=== PATIENT | female | born 1960 | race Caucasian/White ===

== ENCOUNTER 2018-08-12 03:53 | Observation (INO) | payer BC, OTHER ==
--- NOTE | 2018-08-12 03:58 | PDOC ---
History of Present Illness - History of Present Illness Initial Comments: 08/12/18 04:22 The patient is a 57 year old female, with no significant past medical history, who presents to the emergency department with, dizziness and nausea. As per patient, she woke up feeling significantly dizzy and nauseous. She reports on her way to the hospital she also began to experience mild chest tightness and faint. While in the ED, she reports experiencing an episode of right lower extremity tingling which has since resolved. While in the ED, she reports an episode of emesis, which she believes she feels better after. She denies any recent long distance travel. She denies any palpitations. She denies recent fevers, chills, headache or dizziness. She denies recent diarrhea or constipation. She denies recent dysuria, frequency, urgency or hematuria. Allergies: Pollen extracts. Past surgical history: None reported. Social history: Smoker ( pack a day). Denies EtOH use and recreational drug use. <Khalif Gordon - Last Filed: 08/12/18 06:53> <Renetta Rogers - Last Filed: 08/12/18 10:10> <Viral Maravilla - Last Filed: 08/12/18 10:47> - General History Source: Patient Exam Limitations: No Limitations <Hattie Bartholomew - Last Filed: 08/13/18 02:19> - General Stated Complaint: CHEST TIGHTNESS Time Seen by Provider: 08/12/18 03:57 Past History <Khalif Gordon - Last Filed: 08/12/18 06:53> <Renetta Rogers - Last Filed: 08/12/18 10:10> <Viral Maravilla - Last Filed: 08/12/18 10:47> - Suicide/Smoking/Psychosocial Hx Smoking History: Never smoked <Hattie Bartholomew - Last Filed: 08/13/18 02:19> - Past Medical History Allergies/Adverse Reactions: Allergies Allergy/AdvReac Type Severity Reaction Status Date / Time pollen extracts Allergy Verified 08/12/18 04:03 Home Medications: Ambulatory Orders Meclizine HCl [Antivert -] 12.5 mg PO Q6H PRN #10 tablet 08/12/18 Review of Systems - Review of Systems Able to Perform ROS?: Yes Comments:: 08/12/18 04:22 CONSTITUTIONAL: No fever, no chills, no fatigue EYES: No visual changes ENT: No ear pain, no sore throat +CARDIOVASCULAR: Chest tightness. No palpitations RESPIRATORY: No cough, no SOB +GI: Nausea. Vomiting. No abdominal pain, no constipation, no diarrhea GENITOURINARY: No dysuria, no frequency, no hematuria MUSCULOSKELETAL: No back pain, no joint pain, no myalgias SKIN: No rash +NEURO:Dizziness. No headache All Other Systems: Reviewed and Negative <Khalif Gordon - Last Filed: 08/12/18 06:53> *Physical Exam - Vital Signs Last Vital Signs Temp Pulse Resp BP Pulse Ox 97.6 F 79 24 139/69 100 08/12/18 04:03 08/12/18 04:03 08/12/18 04:03 08/12/18 04:03 08/12/18 04:03 - Physical Exam Comments: 08/12/18 04:23 +GENERAL: Anxious on exam. The patient is in no acute distress. HEAD: Normal with no signs of trauma. EYES: PERRLA, EOMI, sclera anicteric, conjunctiva clear. ENT: Ears normal, nares patent, oropharynx clear without exudates. Moist mucous membranes. NECK: Normal range of motion, supple without lymphadenopathy, JVD, or masses. LUNGS: Breath sounds equal, clear to auscultation bilaterally. No wheezes, and no crackles. HEART:Regular rate and rhythm, normal S1 and S2 without murmur, rub or gallop. ABDOMEN: Soft, nontender, normoactive bowel sounds. No guarding, no rebound. No masses palpable. EXTREMITIES: Normal range of motion, no edema. No clubbing or cyanosis. No erythema, or tenderness. NEUROLOGICAL:Alert, awake, appropriate. Cranial nerves 2-12 intact. No deficits to light touch and temperature in face, upper extremities and lower extremities. No motor deficits in the in face, upper extremities and lower extremities. No pronator drift. Normoreflexic in the upper and lower extremities. Normal speech. Toes are down-going bilaterally. MUSCULOSKELETAL: Back non-tender to palpation, no CVA tenderness SKIN: Warm, Dry, normal turgor, no rashes or lesions noted. <Khalif Gordon - Last Filed: 08/12/18 06:53> - Vital Signs Last Vital Signs Temp Pulse Resp BP Pulse Ox 97.6 F 79 24 139/69 100 08/12/18 04:03 08/12/18 04:03 08/12/18 04:03 08/12/18 04:03 08/12/18 04:03 <Renetta Rogers - Last Filed: 08/12/18 10:10> - Vital Signs Last Vital Signs Temp Pulse Resp BP Pulse Ox 97.6 F 79 24 139/69 100 08/12/18 04:03 08/12/18 04:03 08/12/18 04:03 08/12/18 04:03 08/12/18 04:03 <Viral Maravilla - Last Filed: 08/12/18 10:47> ED Treatment Course - LABORATORY CBC & Chemistry Diagram: 08/12/18 04:13 08/12/18 04:13 - RADIOLOGY Radiograph Interpretation: 08/12/18 06:53 EXAM: CT HEAD WITHOUT CONTRAST No acute brain parenchymal abnormality. No hemorrhage, mass or acute territorial infarct. Gas bubbles incidentally noted in bilateral cavnerous sinuses, probably secondary to recent IV injection. Mucoperiosteal thickening and surgical changes paranasal sinuses. Possible small fluid left sphenoid and left maxillary sinuses. Partial right mastoid effusion. Individualized dose optimization techniques were used for this CT Read by: Yoli Jenkins MD - Medications Given in the ED: ED Medications Discontinued Medications Generic Name Dose Route Start Last Admin Trade Name Freq PRN Reason Stop Dose Admin Aspirin 162 mg 08/12/18 04:06 08/12/18 04:16 Asa - PO 08/12/18 04:07 162 mg ONCE ONE Administration Ondansetron HCl 4 mg 08/12/18 04:10 08/12/18 04:16 Zofran Injection IVPUSH 08/12/18 04:11 4 mg ONCE ONE Administration <Khalif Gordon - Last Filed: 08/12/18 06:53> - LABORATORY CBC & Chemistry Diagram: 08/12/18 04:13 08/12/18 04:13 - ADDITIONAL ORDERS Additional order review: Laboratory Results 08/12/18 08/12/18 08/12/18 07:25 04:13 04:13 PT with INR INR PTT (Actin FS) D-Dimer Sodium Potassium Chloride Carbon Dioxide Anion Gap BUN Creatinine Creat Clearance w eGFR Random Glucose Calcium Magnesium Total Bilirubin AST ALT Alkaline Phosphatase Creatine Kinase Creatine Kinase Index CK-MB (CK-2) Troponin I Total Protein Albumin Total Amylase 88 Lipase 176 Blood Type A POSITIVE A POSITIVE Antibody Screen Negative 08/12/18 08/12/18 08/12/18 04:13 04:13 04:13 PT with INR 11.20 INR 0.99 PTT (Actin FS) 30.2 D-Dimer < 200 Sodium 142 Potassium 4.1 Chloride 110 H Carbon Dioxide 22 Anion Gap 10 BUN 16 Creatinine 0.8 Creat Clearance w eGFR > 60 Random Glucose 110 H Calcium 8.8 Magnesium 2.0 Total Bilirubin 0.4 AST 15 ALT 20 Alkaline Phosphatase 113 Creatine Kinase 191 Creatine Kinase Index 0.5 CK-MB (CK-2) < 1.00 Troponin I < 0.02 Total Protein 6.7 Albumin 3.7 Total Amylase Lipase Blood Type Antibody Screen 08/12/18 04:13 RBC 4.17 MCV 91.0 MCHC 33.7 RDW 13.3 MPV 10.9 Neutrophils % 57.3 Lymphocytes % 33.0 Monocytes % 7.4 Eosinophils % 1.9 Basophils % 0.4 - Medications Given in the ED: ED Medications Discontinued Medications Generic Name Dose Route Start Last Admin Trade Name Ronaldoq PRN Reason Stop Dose Admin Aspirin 162 mg 08/12/18 04:06 08/12/18 04:16 Asa - PO 08/12/18 04:07 162 mg ONCE ONE Administration Sodium Chloride 1,000 mls @ 1,000 mls/hr 08/12/18 04:06 08/12/18 04:16 Normal Saline - IV 08/12/18 05:05 1,000 mls/hr ASDIR STA Administration Famotidine/Sodium Chloride 20 mg in 50 mls @ 100 mls/hr 08/12/18 04:10 04:16 Pepcid 20 Mg Premixed Ivpb - IVPB 08/12/18 04:39 100 mls/hr ONCE ONE Administration Meclizine HCl 25 mg 08/12/18 05:25 08/12/18 05:25 Antivert - PO 08/12/18 05:26 25 mg ONCE ONE Administration Ondansetron HCl 4 mg 08/12/18 04:10 08/12/18 04:16 Zofran Injection IVPUSH 08/12/18 04:11 4 mg ONCE ONE Administration - Additional Consults Time Called: 09:38 (Paged rafael Jackson is full, will repage in 15-20 mins.) Consult/PCP: 2nd page @ 10:11am - mailbox is full, paged overhead as well. <Renetta Rogers - Last Filed: 08/12/18 10:10> - LABORATORY CBC & Chemistry Diagram: 08/12/18 04:13 08/12/18 04:13 - ADDITIONAL ORDERS Additional order review: Laboratory Results 08/12/18 08/12/18 08/12/18 07:25 04:13 04:13 PT with INR INR PTT (Actin FS) D-Dimer Sodium Potassium Chloride Carbon Dioxide Anion Gap BUN Creatinine Creat Clearance w eGFR Random Glucose Calcium Magnesium Total Bilirubin AST ALT Alkaline Phosphatase Creatine Kinase Creatine Kinase Index CK-MB (CK-2) Troponin I Total Protein Albumin Total Amylase 88 Lipase 176 Blood Type A POSITIVE A POSITIVE Antibody Screen Negative 08/12/18 08/12/18 08/12/18 04:13 04:13 04:13 PT with INR 11.20 INR 0.99 PTT (Actin FS) 30.2 D-Dimer < 200 Sodium 142 Potassium 4.1 Chloride 110 H Carbon Dioxide 22 Anion Gap 10 BUN 16 Creatinine 0.8 Creat Clearance w eGFR > 60 Random Glucose 110 H Calcium 8.8 Magnesium 2.0 Total Bilirubin 0.4 AST 15 ALT 20 Alkaline Phosphatase 113 Creatine Kinase 191 Creatine Kinase Index 0.5 CK-MB (CK-2) < 1.00 Troponin I < 0.02 Total Protein 6.7 Albumin 3.7 Total Amylase Lipase Blood Type Antibody Screen 08/12/18 04:13 RBC 4.17 MCV 91.0 MCHC 33.7 RDW 13.3 MPV 10.9 Neutrophils % 57.3 Lymphocytes % 33.0 Monocytes % 7.4 Eosinophils % 1.9 Basophils % 0.4 - Medications Given in the ED: ED Medications Discontinued Medications Generic Name Dose Route Start Last Admin Trade Name Freq PRN Reason Stop Dose Admin Aspirin 162 mg 08/12/18 04:06 08/12/18 04:16 Asa - PO 08/12/18 04:07 162 mg ONCE ONE Administration Sodium Chloride 1,000 mls @ 1,000 mls/hr 08/12/18 04:06 08/12/18 04:16 Normal Saline - IV 08/12/18 05:05 1,000 mls/hr ASDIR STA Administration Famotidine/Sodium Chloride 20 mg in 50 mls @ 100 mls/hr 08/12/18 04:10 04:16 Pepcid 20 Mg Premixed Ivpb - IVPB 08/12/18 04:39 100 mls/hr ONCE ONE Administration Meclizine HCl 25 mg 08/12/18 05:25 08/12/18 05:25 Antivert - PO 08/12/18 05:26 25 mg ONCE ONE Administration Ondansetron HCl 4 mg 08/12/18 04:10 08/12/18 04:16 Zofran Injection IVPUSH 08/12/18 04:11 4 mg ONCE ONE Administration <Viral Maravilla - Last Filed: 08/12/18 10:47> - LABORATORY CBC & Chemistry Diagram: 08/12/18 04:13 08/12/18 04:13 <Hattie Bartholomew - Last Filed: 08/13/18 02:19> Medical Decision Making - Medical Decision Making 08/12/18 04:56 NSR rate of 73 bpm, axis nml, intervals nml, no ST elevations or depressions noted Laboratory Tests 08/12/18 08/12/18 08/12/18 04:13 04:13 04:13 WBC 11.5 H Hgb 12.8 Hct 38.0 Plt Count 188 PT with INR 11.20 INR 0.99 PTT (Actin FS) 30.2 Sodium 142 Potassium 4.1 Chloride 110 H Carbon Dioxide 22 BUN 16 Creatinine 0.8 Random Glucose 110 H Creatine Kinase 191 Troponin I < 0.02 Total Amylase Lipase 08/12/18 04:13 WBC Hgb Hct Plt Count PT with INR INR PTT (Actin FS) Sodium Potassium Chloride Carbon Dioxide BUN Creatinine Random Glucose Creatine Kinase Troponin I Total Amylase 88 Lipase 176 08/12/18 05:20 Neurological examination repeat No dysdiadokinesis No dysmetria Heel to ramos nml Rhomberg negative No ataxia, no gait disturbance No nystagmus CT head ordered Meclizine ordered Re assess Pt signed out to Dr Garcia in the am Will place on observation given pt had chest pain <Hattie Bartholomew - Last Filed: 08/13/18 02:19> *DC/Admit/Observation/Transfer - Attestations Scribe Attestion: 08/12/18 04:24 Documentation prepared by Khalif Gordon, acting as healthcare or medical for Hattie Bartholomew MD. <Khalif Gordon - Last Filed: 08/12/18 06:53> <Renetta Rogers - Last Filed: 08/12/18 10:10> - Discharge Dispostion Decision to Admit order: Yes <Viral Maravilla - Last Filed: 08/12/18 10:47> - Discharge Dispostion Decision to Admit order: No <Hattie Bartholomew - Last Filed: 08/13/18 02:19> Diagnosis at time of Disposition: Vertigo Chest pain Qualifiers: Chest pain type: unspecified Qualified Code(s): R07.9 - Chest pain, unspecified - Discharge Dispostion Disposition: HOME Condition at time of disposition: Fair
[2018-08-12] MEDS ORDERED: ONDANSETRON 4 MG/2 ML VIAL ONE (04:05)
[2018-08-12] MEDS ORDERED: FAMOTIDINE 20 MG/50 ML IVPB 20 MG/50 ML MG IVPB ONE ×2 (04:06→04:10)
[2018-08-12] MEDS ORDERED: SODIUM CHLORIDE 1,000 ML IV STA (04:06)
[2018-08-12] MEDS ORDERED: ASPIRIN 81 MG CHEWABLE TABLETS PO ONE (04:06)
[2018-08-12] MEDS ORDERED: ONDANSETRON 4 MG/2 ML VIAL IVPUSH ONE (04:10)
[2018-08-12 04:16] VITALS: BMI 26.6
[2018-08-12] MEDS ORDERED: ASPIRIN 81 MG CHEWABLE TABLETS ONE (04:17)
[2018-08-12 04:27] LABS: BASO % 0.4 % (0-2.0); EOS % 1.9 % (0-4.5); HEMOGLOBIN 12.8 GM/dL (10.7-15.3); MCH 30.7 pg (25.7-33.7); MCHC 33.7 g/dl (32.0-36.0); MEAN PLT VOLUME 10.9 fl (7.5-11.1); MONO % 7.4 % (3.8-10.2); NEUT % 57.3 % (42.8-82.8); PLATELET COUNT 188 K/MM3 (134-434); RBC 4.17 M/mm3 (3.60-5.2); RDW 13.3 % (11.6-15.6); WHITE BLOOD COUNT 11.5 K/mm3 (4.0-10.0)
[2018-08-12 04:39] LABS: INR 0.99 (0.83-1.09); PROTHROMBIN TIME (PATIENT) 11.2 SEC (9.7-13.0)
[2018-08-12 04:42] LABS: ACTIVATED PTT 30.2 SECONDS (25.2-36.5)
[2018-08-12 04:44] LABS: AMYLASE 88 U/L (25-115); LIPASE 176 U/L (73-393)
[2018-08-12 04:48] LABS: ALBUMIN 3.7 g/dl (3.4-5.0); ALK PHOS 113 U/L (45-117); ANION GAP 10 MMOL/L (8-16); BILIRUBIN,TOTAL 0.4 mg/dL (0.2-1.0); BLOOD UREA NITROGEN 16 mg/dL (7-18); CALCIUM 8.8 mg/dL (8.5-10.1); CHLORIDE 110 mmol/L (98-107); CO2 22 mmol/L (21-32); CREATININE 0.8 mg/dL (0.55-1.02); GLUCOSE,RANDOM 110 mg/dL (74-106); POTASSIUM 4.1 mmol/L (3.5-5.1); SGOT/AST 15 U/L (15-37); SGPT/ALT 20 U/L (12-78); SODIUM 142 mmol/L (136-145); TOT PROT 6.7 g/dl (6.4-8.2)
[2018-08-12] MEDS ORDERED: MECLIZINE HCL 25 MG TABLET (FP) PO ONE (05:25)
[2018-08-12] MEDS ORDERED: MECLIZINE HCL 25 MG TABLET (FP) ONE (05:38)
--- NOTE | 2018-08-12 11:51 | EKG ---
Test Reason : Blood Pressure : / mmHG Vent. Rate : 073 BPM Atrial Rate : 073 BPM P-R Int : 146 ms QRS Dur : 082 ms QT Int : 414 ms P-R-T Axes : 080 024 048 degrees QTc Int : 456 ms NORMAL SINUS RHYTHM POSSIBLE LEFT ATRIAL ENLARGEMENT BORDERLINE ECG WHEN COMPARED WITH ECG OF 12-NOV-2016 01:05, NO SIGNIFICANT CHANGE WAS FOUND Confirmed by ANNIE PADILLA MD ([id number]) on 08/12/2018 11:50:35 AM Referred By: Confirmed By:ANNIE PADILLA MD
--- NOTE | 2018-08-12 17:38 | CON.CARD ---
Consult Consult Specialty:: Cardiology Referred by:: ER/Dr. Moffett Reason for Consultation:: chest pain - History of Present Illness Chief Complaint: dizziness, nausea, vomiting, chest pain History of Present Illness: 57 year old woman with recently dx asthma, past smoking history, no other known pmh admitted with c/o dizziness followed by nausea and vomiting followed by substernal chest tightness while walking into the ER. Symptoms resolved after treatment with meclizine and zofran in the ER. Pt seen and examined today in nad. denies ever having these symptoms before. currently feels back to her normal. denies having chest pain previously, no sob. no palpitations, pnd, orthopnea, or LE edema. - History Source History Provided By: Patient, Family Member Limitations to Obtaining History: No Limitations - Alcohol/Substance Use Hx Alcohol Use: No - Smoking History Smoking history: Former smoker Have you smoked in the past 12 months: Yes Aproximately how many cigarettes per day: 12 - Social History Usual Living Arrangement: With Spouse ADL: Independent History of Recent Travel: No Home Medications - Allergies Allergies/Adverse Reactions: Allergies Allergy/AdvReac Type Severity Reaction Status Date / Time pollen extracts Allergy Verified 08/12/18 04:03 - Home Medications Home Medications: Ambulatory Orders NK [No Known Home Medication] 11/12/16 Family Disease History - Family Disease History Family History: Denies Review of Systems - Review of Systems Constitutional: denies: No Symptoms, Chills, Diaphoresis, Fever, Lethargy, Loss of Appetite, Malaise, Night Sweats, Unintentional Wgt. Loss, Weakness, Other Eyes: denies: No Symptoms, Blind Spots, Blurred Vision, Double Vision, Eye Pain , Floaters, Photophobia, Recent Change in Vision, Other HENT: denies: No Symptoms, Difficult Swallowing, Ear Discharge, Ear Pain, Epistaxis, Gingival Bleeding, Hearing Loss, Mouth Swelling, Nasal Congestion, Ocular Prosthesis, Throat Pain, Toothache, Ringing in Ears, Other Neck: denies: No Symptoms, Decreased ROM, Lumps, Pain on Movement, Stiffness, Swollen Glands, Tenderness, Other Cardiovascular: reports: Chest Pain. denies: No Symptoms, Edema, Palpitations, Shortness of Breath, Other Respiratory: denies: No Symptoms, Cough, Exercise Intolerance, Hemoptysis, Orthopnea, PND, Snoring, SOB, SOB on Exertion, Wheezing, Other Gastrointestinal: reports: Nausea, Vomiting. denies: No Symptoms, Abdominal Pain, Bloating, Constipation, Diarrhea, Dysphagia, Indigestion, Melena, Rectal Bleeding, Vomiting Blood, Other Genitourinary: denies: No Symptoms, Burning, Discharge, Dysuria, Flank Pain, Frequency, Hematuria, Incontinence, Lesions, Menses, Pain, Testicular Mass, Testicular Pain, Testicular Swelling, Urgency, Vaginal Bleeding, Other Breasts: denies: No Symptoms Reported, See HPI, Breast Implants, Discharge from Nipple, Lumps, Pain, Skin Changes, Other Musculoskeletal: denies: No Symptoms, Back Pain, Crepitus, Decreased ROM, Extremity Pain, Joint Pain, Joint Swelling, Muscle Pain, Muscle Cramps, Muscle Weakness, Other Integumentary: denies: No Symptoms, Blister, Bruising, Change in Color, Eczema, Erythema, Incision, Lesions, Lump, Pallor, Pruritis, Rash, Wound, Other Neurological: reports: Dizziness. denies: No Symptoms, Change in LOC, Change in Speech, Confusion, Headache, Incoordination, Numbness, Parasthesia, Pre- Existing Deficit, Seizure, Syncope, Tremors, Unsteady Gait, Weakness, Other Endocrine: denies: No Symptoms, Excessive Sweating, Flushing, Increased Hunger, Increased Thirst, Intolerance to Cold, Intolerance to Heat, Unexplained Weight Gain, Unexplained Weight Loss, Other Hematology/Lymphatic: denies: No Symptoms, Easily Bruised, Excessive Bleeding, Swollen Glands, Other Psychiatric: denies: No Symptoms, Altered Sleep Pattern, Anxiety, Depression, Hallucinations, Panic, Paranoia, Suicidal, Other Vital Signs: Vital Signs Temperature 97.7 F 08/12/18 11:30 Pulse Rate 65 08/12/18 11:30 Respiratory Rate 18 08/12/18 11:30 Blood Pressure 121/77 08/12/18 11:30 O2 Sat by Pulse Oximetry (%) 100 08/12/18 04:03 Constitutional: Yes: Well Nourished, No Distress, Calm Eyes: Yes: WNL, Conjunctiva Clear, EOM Intact, PERRL HENT: Yes: WNL, Atraumatic, Normocephalic Neck: Yes: WNL, Supple, Trachea Midline Respiratory: Yes: WNL, Regular, CTA Bilaterally. No: Rales, Rhonchi, Wheezes Gastrointestinal: Yes: WNL, Normal Bowel Sounds, Soft. No: Distention, Tenderness Renal/: Yes: WNL Cardiovascular: Yes: WNL, Regular Rate and Rhythm. No: Bradycardia, Tachycardia , Pulse Irregular, Gallop, Rub, Varicosities JVD: No Carotid Bruit: No PMI: Non-Displaced Heart Sounds: Yes: S1, S2. No: Split S2, S3, S4, Clicks, Gallop, Rub, Bruit Murmur: No: Systolic Murmur, Diastolic Murmur Musculoskeletal: Yes: WNL Extremities: Yes: WNL Edema: No Peripheral Pulses WNL: Yes Peripheral Pulses: 2+ Left Doralis Pedis, 2+ Right Dorsalis Pedis Integumentary: Yes: WNL Neurological: Yes: WNL, Alert, Oriented, Cran Nerves II-XII Intact ...Motor Strength: WNL Psychiatric: Yes: WNL, Alert, Oriented - Other Data Labs, Other Data: CBC, BMP 08/12/18 04:13 08/12/18 04:13 INR, PTT INR 0.99 (0.83-1.09) 08/12/18 04:13 Troponin, BNP 08/12/18 04:13 Troponin I < 0.02 Troponin, BNP 08/12/18 04:13 Troponin I < 0.02 ekg-normal sinus rhythm. normal ecg Imaging - Results Chest X-ray: Report Reviewed, Image Reviewed EKG: Report Reviewed, Image Reviewed Other: Report Reviewed, Image Reviewed Assessment/Plan 57 year old woman with recently dx asthma, past smoking history, no other known pmh admitted with c/o dizziness followed by nausea and vomiting followed by substernal chest tightness while walking into the ER. Symptoms resolved after treatment with meclizine and zofran in the ER. Chest pain-atypical, preceded by dizziness nausea and vomiting -unlikely ACS -ekg wnl -cardiac enzymes wnl x 1 -symptoms resolved with meclizine and zofran -pt would be acceptable to have remainder of cardiac work up as outpatient Dizziness-possible vertigo -resolved with meclizine and zofran Pt is acceptable for discharge from cardiac standpoint. Please call with any additional questions.
--- NOTE | 2018-08-12 19:28 | HP ---
Admitting History and Physical - Primary Care Physician PCP: Kalli Moffett - Admission History of Present Illness: 57 year old female, with no significant past medical history, who presents to the emergency department with, dizziness and nausea. As per patient, she woke up feeling significantly dizzy and nauseous. She reports on her way to the hospital she also began to experience mild chest tightness and faint. While in the ED, she reports experiencing an episode of right lower extremity tingling which has since resolved. While in the ED, she reports an episode of emesis, which she believes she feels better after. - Smoking History Smoking history: Former smoker Have you smoked in the past 12 months: Yes Aproximately how many cigarettes per day: 12 - Alcohol/Substance Use Hx Alcohol Use: No - Social History ADL: Independent History of Recent Travel: No Home Medications - Allergies Allergies/Adverse Reactions: Allergies Allergy/AdvReac Type Severity Reaction Status Date / Time pollen extracts Allergy Verified 08/12/18 04:03 - Home Medications Home Medications: Ambulatory Orders Meclizine HCl [Antivert -] 12.5 mg PO Q6H PRN #10 tablet 08/12/18 Physical Examination Vital Signs: Vital Signs Temperature 97.7 F 08/12/18 11:30 Pulse Rate 83 08/12/18 18:40 Respiratory Rate 18 08/12/18 18:40 Blood Pressure 115/68 08/12/18 18:40 O2 Sat by Pulse Oximetry (%) 100 08/12/18 18:40 Constitutional: Yes: No Distress HENT: Yes: Atraumatic Neck: Yes: Supple Cardiovascular: Yes: Regular Rate and Rhythm Respiratory: Yes: CTA Bilaterally Gastrointestinal: Yes: Normal Bowel Sounds Extremities: Yes: WNL Neurological: Yes: Alert, Oriented Labs: CBC, BMP 08/12/18 04:13 08/12/18 04:13 Problem List - Problems (1) Chest pain Assessment/Plan: fu cardiac profile and troponins..negative Code(s): R07.9 - CHEST PAIN, UNSPECIFIED Qualifiers: Chest pain type: unspecified Qualified Code(s): R07.9 - Chest pain, unspecified (2) Vertigo Assessment/Plan: prn meclizine Code(s): R42 - DIZZINESS AND GIDDINESS Assessment/Plan Laboratory Tests 08/12/18 08/12/18 08/12/18 04:13 04:13 04:13 WBC 11.5 H RBC 4.17 Hgb 12.8 Hct 38.0 MCV 91.0 MCH 30.7 MCHC 33.7 RDW 13.3 Plt Count 188 MPV 10.9 Absolute Neuts (auto) 6.6 Neutrophils % 57.3 Lymphocytes % 33.0 Monocytes % 7.4 Eosinophils % 1.9 Basophils % 0.4 Nucleated RBC % 0 PT with INR 11.20 INR 0.99 PTT (Actin FS) 30.2 D-Dimer < 200 Sodium Potassium Chloride Carbon Dioxide Anion Gap BUN Creatinine Creat Clearance w eGFR Random Glucose Calcium Magnesium Total Bilirubin AST ALT Alkaline Phosphatase Creatine Kinase Creatine Kinase Index CK-MB (CK-2) Troponin I Total Protein Albumin Total Amylase Lipase Blood Type Antibody Screen 08/12/18 08/12/18 08/12/18 04:13 04:13 04:13 WBC RBC Hgb Hct MCV MCH MCHC RDW Plt Count MPV Absolute Neuts (auto) Neutrophils % Lymphocytes % Monocytes % Eosinophils % Basophils % Nucleated RBC % PT with INR INR PTT (Actin FS) D-Dimer Sodium 142 Potassium 4.1 Chloride 110 H Carbon Dioxide 22 Anion Gap 10 BUN 16 Creatinine 0.8 Creat Clearance w eGFR > 60 Random Glucose 110 H Calcium 8.8 Magnesium 2.0 Total Bilirubin 0.4 AST 15 ALT 20 Alkaline Phosphatase 113 Creatine Kinase 191 Creatine Kinase Index 0.5 CK-MB (CK-2) < 1.00 Troponin I < 0.02 Total Protein 6.7 Albumin 3.7 Total Amylase 88 Lipase 176 Blood Type A POSITIVE Antibody Screen Negative 08/12/18 07:25 WBC RBC Hgb Hct MCV MCH MCHC RDW Plt Count MPV Absolute Neuts (auto) Neutrophils % Lymphocytes % Monocytes % Eosinophils % Basophils % Nucleated RBC % PT with INR INR PTT (Actin FS) D-Dimer Sodium Potassium Chloride Carbon Dioxide Anion Gap BUN Creatinine Creat Clearance w eGFR Random Glucose Calcium Magnesium Total Bilirubin AST ALT Alkaline Phosphatase Creatine Kinase Creatine Kinase Index CK-MB (CK-2) Troponin I Total Protein Albumin Total Amylase Lipase Blood Type A POSITIVE Antibody Screen Active Medications Generic Name Dose Route Start Last Admin Trade Name Freq PRN Reason Stop Dose Admin Meclizine HCl 12.5 mg 08/12/18 19:40 Antivert - PO Q6H PRN vertigo
[2018-08-12] MEDS ORDERED: MECLIZINE HCL 12.5 MG TABLET PO PRN (19:40)
--- NOTE | 2018-08-12 22:45 | DS ---
Physical Examination Vital Signs: Vital Signs Temperature 97.7 F 08/12/18 11:30 Pulse Rate 83 08/12/18 18:40 Respiratory Rate 18 08/12/18 18:40 Blood Pressure 115/68 08/12/18 18:40 O2 Sat by Pulse Oximetry (%) 100 08/12/18 18:40 Labs: CBC, BMP 08/12/18 04:13 08/12/18 04:13 Discharge Summary Reason For Visit: CHEST PAIN Current Active Problems Chest pain (Acute) Vertigo (Acute) Condition: Fair - Instructions - Home Medications Comprehensive Discharge Medication List: Ambulatory Orders Meclizine HCl [Antivert -] 12.5 mg PO Q6H PRN #10 tablet 08/12/18 dc
[2018-08-12 23:32] VITALS: BP 110/71; PULSE 89; TEMP 98.5
== END 2018-08-12 23:33 | disposition home or self-care (01) ==
LOC: JER 03:53 → JERBED 10:48
PROVIDERS: ADMIT Internal Medicine; ATTEND Internal Medicine
PROC: 3E033GC Introduction of Other Therapeutic Substance into Peripheral Vein, Percutaneous Approach (ICD-10-PCS; principal; 2018-08-12)
PROC: 3E0337Z Introduction of Electrolytic and Water Balance Substance into Peripheral Vein, Percutaneous Approach (ICD-10-PCS; 2018-08-12)
DX: R07.89 Other chest pain (principal); R42 Dizziness and giddiness; J45.909 Unspecified asthma, uncomplicated; Z87.891 Personal history of nicotine dependence
CPT/HCPCS: 36415; 70450-TC; 71045-TC-FY; 80053; 82150; 82550; 82553; 83690; 83735; 84484; 85025; 85379; 85610; 85730; 86850; 86900; 86901; 93005; 93010; 99284-25; G0378; J7030

== ENCOUNTER 2018-09-01 18:25 | Emergency (ER) | payer OTHER ==
--- NOTE | 2018-09-01 18:46 | PDOC ---
Rapid Medical Evaluation Time Seen by Provider: 09/01/18 18:45 Medical Evaluation: Allergies Allergy/AdvReac Type Severity Reaction Status Date / Time pollen extracts Allergy Verified 08/12/18 04:03 I have performed a brief in-person evaluation of this patient. The patient presents with a chief complaint of: thinks she's having vertigo. She feels like her ear is clogged and is dizzy when she moves her head from side to side. Pertinent physical exam findings: none I have ordered the following: nothing The patient will proceed to the ED for further evaluation. Discharge Disposition - Diagnosis Vertigo - Referrals - Patient Instructions - Post Discharge Activity
[2018-09-01 18:52] VITALS: BP 123/66; PULSE 77; TEMP 98.4; BMI 25.4
[2018-09-01] MEDS ORDERED: PSEUDOEPHEDRINE HCL 30 MG TABLET PO ONE (19:20)
[2018-09-01] MEDS ORDERED: MECLIZINE HCL 25 MG TABLET (FP) PO ONE (19:20)
--- NOTE | 2018-09-01 19:24 | PDOC ---
History of Present Illness - General Chief Complaint: Lightheaded Stated Complaint: Lightheaded Time Seen by Provider: 09/01/18 18:45 - History of Present Illness Initial Comments: 58-year-old female without comorbidities presents for evaluation of right ear pain and dizziness 2 weeks. She states she was recently discharged from the hospital because of dizziness and had a negative workup. She does have associated rhinorrhea which is thick and yellow she states. No fevers chills or night sweats. Right ear pain dizziness and yellow rhinorrhea and facial congestion. 09/01/18 19:21 Past History - Past Medical History Allergies/Adverse Reactions: Allergies Allergy/AdvReac Type Severity Reaction Status Date / Time pollen extracts Allergy Verified 09/01/18 18:46 Home Medications: Ambulatory Orders Amox-Tr/K Cl [Augmentin - 875Mg Tablet] 1 tab PO BID #28 tablet 09/01/18 Budesonide [Rhinocort Allergy] 1 spray NS ONCE #1 spray.pump 09/01/18 Cetirizine HCl/Pseudoephedrine [Zyrtec-D Tablet] 1 each PO DAILY #30 tab.er.12h 09/01/18 Diclofenac Sodium 25 mg PO ONCE #1 tablet.dr 09/01/18 Loratadine [Claritin -] 10 mg PO DAILY 09/01/18 Meclizine HCl 25 mg PO BID #30 tablet 09/01/18 COPD: No - Immunization History Immunization Up to Date: Yes - Suicide/Smoking/Psychosocial Hx Smoking History: Current every day smoker Have you smoked in the past 12 months: Yes Number of Cigarettes Smoked Daily: 6 Information on smoking cessation initiated: No Hx Alcohol Use: No Drug/Substance Use Hx: No Substance Use Type: None Review of Systems - Review of Systems HEENTM: Yes: Eye Pain, Nose Congestion Neurological: Yes: Dizziness All Other Systems: Reviewed and Negative *Physical Exam - Vital Signs Last Vital Signs Temp Pulse Resp BP Pulse Ox 98.4 F 77 16 123/66 100 09/01/18 18:46 09/01/18 18:46 10 18:46 09/01/18 18:46 09/01/18 18:46 - Physical Exam Comments: HEAD: NC/AT EYES: Conjuntiva clear Ears: Canals and TM's normal color with good light reflex, right-sided bulging NOSE: No d/c, injected turbinates THROAT: Moist mucous membrances, oral pharanx clear, uvula midline NECK: Supple without adenopathy CARDIAC: S1 S2 LUNGS: CTA Full and Equal breath sounds ABDOMEN: Soft NT ND MS: Full ROM in all joints without edema NEUROLOGIC: No gross sensory or motor deficits, NVID SKIN: Normal color and temperature no lesions or rashes 09/01/18 19:22 Medical Decision Making - Medical Decision Making I suspect this may be untreated sinusitis I will try her on meclizine for the dizziness and the Sudafed to help with the congestion to see if this clears her up if this works I will we'll consider treating her for sinusitis with Augmentin as well as a second generation antihistamine with Sudafed. Nasal spray and meclizine. 09/01/18 19:23 09/01/18 20:34 She had relief of dizziness with meclizine no relief with Sudafed for ear congestion. I believe this is a true sinusitis I will discharge her with Augmentin for 14 days, meclizine, Rhinocort, and Zyrtec-D. She states she gets use infections with antibiotics I will give her one pill of diclofenac if needed. ENT follow-up. *DC/Admit/Observation/Transfer Diagnosis at time of Disposition: Vertigo, Sinusitis - Discharge Dispostion Disposition: HOME Condition at time of disposition: Improved Decision to Admit order: No - Referrals Referrals: Elliott Funes MD [Staff Physician] - - Patient Instructions Printed Discharge Instructions: Sinusitis, DI for Sinusitis Additional Instructions: Discontinue the use of the Claritin. Please take the medication I prescribed a few as directed. Return to the emergency room should symptoms worsen or go unresolved. Follow-up with ENT in 2-3 days for further evaluation and treatment options. - Post Discharge Activity
[2018-09-01] MEDS ORDERED: MECLIZINE HCL 25 MG TABLET (FP) ONE (19:33)
[2018-09-01] MEDS ORDERED: PSEUDOEPHEDRINE HCL 60 MG TABLET ONE (19:34)
== END 2018-09-01 20:57 | disposition home or self-care (01) ==
LOC: JERFT 18:25 → JER 18:25 → JERFT 20:57
DX: J01.90 Acute sinusitis, unspecified (principal)
CPT/HCPCS: 99281-25

== ENCOUNTER 2020-09-01 18:14 | Emergency (ER) | payer BC, OTHER ==
[2020-09-01 18:30] VITALS: TEMP 98.3; BMI 24.7
--- NOTE | 2020-09-01 19:25 | PDOC ---
History of Present Illness - General Chief Complaint: Vomiting/Diarrhea Stated Complaint: VOMITING/DIARRHEA Time Seen by Provider: 09/01/20 19:24 History Source: Patient Exam Limitations: No Limitations - History of Present Illness Initial Comments: 09/01/20 19:55 60 y.o. F no significant PMHx Presenting due to vomiting and diarrhea. Patient states she has been having several episodes of non-bloody emesis since Friday, 3x today productive of a white mucus. Patient has not been able to hold down food or fluids since Friday. Patient states she has also been having soft stool diarrhea since Friday. Pain is located periumbilical/epigastric, nonradiating. Patient reports no fevers, chills, chest pain, SOB. Patient had a recent pelvic ultrasound that was positive for fibroids. PCP: Dr. Gan PMHx: None PSH: b/l saplingectomy 23 years ago Meds: In Chart Allergies: Pollen 09/01/20 21:19 Past History - Medical History Allergies/Adverse Reactions: Allergies Allergy/AdvReac Type Severity Reaction Status Date / Time pollen extracts Allergy Verified 09/01/20 18:24 Home Medications: Ambulatory Orders Amox-Tr/K Cl [Augmentin - 875Mg Tablet] 1 tab PO BID #28 tablet 09/01/18 Budesonide [Rhinocort Allergy] 1 spray NS ONCE #1 spray.pump 09/01/18 Cetirizine HCl/Pseudoephedrine [Zyrtec-D Tablet] 1 each PO DAILY #30 tab.er.12h 09/01/18 Diclofenac Sodium 25 mg PO ONCE #1 tablet. 09/01/18 Loratadine [Claritin -] 10 mg PO DAILY 09/01/18 Meclizine HCl 25 mg PO BID #30 tablet 09/01/18 COPD: No - Immunization History Immunization Up to Date: Yes - Psycho-Social/Smoking History Smoking History: Former smoker Have you smoked in the past 12 months: Yes Number of Cigarettes Smoked Daily: 0 If you are a former smoker, when did you quit?: 03/2020 Information on smoking cessation initiated: No - Substance Abuse Hx (Audit-C & DAST Scrn) How often the patient has a drink containing alcohol: Never Score: In Men: 4 or > Positive; In Women: 3 or > Positive: 0 Screen Result (Pos requires Nsg. Audit-10AR): Negative In the last yr the pt used illegal drug/Rx for NonMed reason: No Score: Yes response is considered Positive: 0 Screen Result (Positive result requires Nsg. DAST-10): Negative Review of Systems - Review of Systems Able to Perform ROS?: Yes Is the patient limited [place] proficient: No Constitutional: No: Chills, Fever HEENTM: No: Blurred Vision, Double Vision Respiratory: No: Cough, Shortness of Breath, Wheezing Cardiac (ROS): No: Chest Pain, Lightheadedness ABD/GI: Yes: Diarrhea (x2 episodes daily), Nausea, Poor Appetite, Vomiting (white mucus x3 today). No: Constipated : No: Burning, Dysuria Musculoskeletal: No: Back Pain, Muscle Pain, Muscle Weakness Integumentary: No: Bruising, Dryness, Erythema, Rash Neurological: Yes: Dizziness. No: Headache, Numbness, Seizure Hematologic/Lymphatic: No: Easy Bleeding, Easy Bruising *Physical Exam - Vital Signs Last Vital Signs Temp Pulse Resp BP Pulse Ox 98.3 F 84 18 124/76 100 09/01/20 18:25 09/01/20 18:25 09/01/20 18:25 09/01/20 18:25 09/01/20 18:25 - Physical Exam General Appearance: Yes: Nourished, Appropriately Dressed. No: Apparent Distress Respiratory/Chest: positive: Lungs Clear, Normal Breath Sounds. negative: Chest Tender, Respiratory Distress, Accessory Muscle Use, Crackles, Rales, Stridor, Wheezing Cardiovascular: positive: Regular Rhythm, Regular Rate. negative: Edema, JVD, Murmur Gastrointestinal/Abdominal: positive: Normal Bowel Sounds, Tender (periu mbilical), Flat, Soft, Tenderness. negative: Protuberent, Distended, Rebound Musculoskeletal: positive: Normal Inspection. negative: CVA Tenderness Extremity: positive: Normal Inspection, Normal Range of Motion. negative: Tender, Swelling, Calf Tenderness Integumentary: positive: Normal Color, Dry, Warm Neurologic: positive: Fully Oriented, Alert, Normal Mood/Affect, Normal Response ED Treatment Course - LABORATORY CBC & Chemistry Diagram: 09/01/20 20:26 09/01/20 20:26 Medical Decision Making - Medical Decision Making 09/01/20 20:04 60 y.o. F no significant PMHx Presenting due to vomiting and diarrhea. DDx: Gallstone, cholecystitis, viral gastroenteritis, Pancreatitis, Peptic ulcer disease, appendicitis, kidney stone Labs: WBC 8.2, Trop <0.02, Lipase 86, Na 142, K 4.4 CT: No acute pathology UA: 1+ Ketones Dispo: D/C home 09/02/20 00:05 Discharge - Discharge Information Problems reviewed: Yes Clinical Impression/Diagnosis: Gastroenteritis Condition: Improved - Admission No - Follow up/Referral Referrals: ON STAFF,NOT [Primary Care Provider] - Jerry Fernandez MD [Staff Physician] - - Patient Discharge Instructions Patient Printed Discharge Instructions: DI for Viral Gastroenteritis -- Adult Additional Instructions: You were seen in the emergency department for Nausea and vomiting. You received pain medication, nausea medication an fluids . Your labs and imaging showed no severe gastrointestinal problems This can be caused by viral infection. As such you were treated for gastroenteritis. You were given pain and nausea medication in the emergency department. Please follow up with your primary care physician and or gas stove servicer helper regarding your visit to the emergency department. If you experience profound nausea, vomiting, blood in stool, lightheadedness please return to the emergency department. - Post Discharge Activity
[2020-09-01] MEDS ORDERED: ONDANSETRON 4 MG/2 ML VIAL IVPUSH ONE (19:46)
[2020-09-01] MEDS ORDERED: FAMOTIDINE 20 MG/50 ML IVPB 20 MG/50 ML MG IVPB ONE ×2 (19:49→20:14)
[2020-09-01] MEDS ORDERED: MAG HYDROX/AL HYDROX/SIMETH 30 ML UNIT-DOSE CUP PO ONE (19:49)
[2020-09-01] MEDS ORDERED: MAG HYDROX/AL HYDROX/SIMETH 30 ML UNIT-DOSE CUP ONE (20:13)
[2020-09-01] MEDS ORDERED: ACETAMINOPHEN 1000 MG/100 ML VIAL (NON FORMULARY) IVPB ONE ×2 (20:15→20:17)
[2020-09-01] MEDS ORDERED: ACETAMINOPHEN INJECTION 100 ML IVPB ONE (20:18)
--- OUTSIDE RECORDS SUMMARY | 2020-09-01 20:23 | XMS ---
:1960 [facility] Providers Name Role Phone Joel Ryan Unavailable [phone] Coon, Nery Unavailable Unavailable Coon, Nery Unavailable Unavailable Coon, Nery Unavailable Unavailable Coon, Nery Unavailable Unavailable Coon, Nery Unavailable Unavailable Coon, Nery Unavailable Unavailable Elizabeth, Ammir Unavailable [phone] Elizabeth, Ammir Unavailable [phone] Elizabeth, Ammir Unavailable [phone] Elizabeth, Ammir Unavailable [phone] Elizabeth, Ammir Unavailable [phone] Elizabeth, Ammir Unavailable [phone] Elizabeth, Ammir Unavailable [phone] Elizabeth, Ammir Unavailable [phone] Elizabeth, Ammir Unavailable [phone] Elizabeth, Ammir Unavailable [phone] Elizabeth, Ammir Unavailable [phone] Elizabeth, Ammir Unavailable [phone] Elizabeth, Ammir Unavailable [phone] Elizabeth, Ammir Unavailable [phone] Elizabeth, Ammir Unavailable [phone] Elizabeth, Ammir Unavailable [phone] Pollack, MiChung Unavailable Unavailable Pollack, MiChung Unavailable Unavailable Pollack, MiChung Unavailable Unavailable Pollack, MiChung Unavailable Unavailable Ringstad, Lesli Unavailable Unavailable Ringstad, Lesli Unavailable Unavailable Ringstad, Lesli Unavailable Unavailable Ringstad, Lesli Unavailable Unavailable Ringstad, Lesli Unavailable Unavailable Ringstad, Lesli Unavailable Unavailable Ringstad, Lesli Unavailable Unavailable Ringstad, Lesli Unavailable Unavailable Ringstad, Lesli Unavailable Unavailable Ringstad, Lesli Unavailable Unavailable Ringstad, Lesli Unavailable Unavailable COON NERY B, NERY Unavailable Unavailable Re-disclosure Warning The records that you are about to access may contain information from federally- assisted alcohol or drug abuse programs. If such information is present, then the following federally mandated warning applies: This information has been disclosed to you from records protected by federal confidentiality rules (42 CFR part 2). The federal rules prohibit you from making any further disclosure of this information unless further disclosure is expressly permitted by the written consent of the person to whom it pertains or as otherwise permitted by 42 CFR part 2. A general authorization for the release of medical or other information is NOT sufficient for this purpose. The Federal rules restrict any use of the information to criminally investigate or prosecute any alcohol or drug abuse patient.The records that you are about to access may contain highly sensitive health information, the redisclosure of which is protected by Article 27-F of the [facility] Public Health law. If you continue you may haveaccess to information: Regarding HIV / AIDS; Provided by facilities licensed or operated by the [facility] Office of Mental Health; or Provided by the [facility] Office for People With Developmental Disabilities. If such information is present, then the following [facility] mandated warning applies: This information has been disclosed to you from confidential records which are protected by state law. State law prohibits you from making any further disclosure of this information without the specific written consent of the person to whom it pertains, or as otherwise permitted by law. Any unauthorized further disclosure in violation of state law may result in a fine or alf sentence or both. A general authorization for the release of medical or other information is NOT sufficient authorization for further disclosure. Allergies and Adverse Reactions Type Description Substance Reaction Status Data Source(s ) propensity to Penicillin Penicillins Hives/Skin Rash Active NEXTG EN ([facility] adverse reactions (substance) [facility] to drug Center) Encounters Encounter Providers Location Date Indications Data Source(s ) Attender: [facility] 05/03/2020 NEXTGEN ([facility] 12:49:00 [facility] [place] PM EDT - Center) 05/03/2020 12:49:00 PM EDT Attender: [facility] 04/27/2020 NEXTGEN ([facility] int [facility] 12:39:00 [place] [place] PM EDT - Center) 04/27/2020 12:39:00 PM EDT Attender: [facility] 04/11/2020 NEXTGEN (Sa int [facility] 11:03:00 [place] [facility] AM EDT - Center) 04/11/2020 11:03:00 AM EDT Outpatient Attender: H 02/14/2020 [facility] [place] [facility] 09:20:[address] NERY AM EDT BAdmitter: NERY MATA BReferrer: NERY [place] [facility]14[facility]2020 NEXTG EN ([facility] /OUTPATIENT [facility] 09:20:00 [place] M [facility]ical VISIT, EST AM EDT - Center) 02/14/2020 09:20:00 AM EDT Outpatient 02/14/2020 [facility] 09:19:00 Medical Center AM EDT Outpatient 02/14/2020 [facility] 12:00:00 Medical Center AM EDT Outpatient Attender: 12/02/2019 [facility] NERY PM EST BAdmitter: NERY MATA BReferrer: NERY [place] Attender: [facility] 12/02/2019 NEXTGEN ( int [facility] 02:28:00 [place] [facility] PM EST - Center) 12/02/2019 02:28:00 PM EST Outpatient 12/02/2019 [facility] 01:44:00 Medical Center PM EST Outpatient 12/02/2019 [facility] 12:00:00 Medical Center AM EST Attender: [facility] 04/29/2019 NEXTGEN ( int [facility] 04:21:00 [place] [facility] ical PM EDT - Center) 04/29/2019 04:21:00 PM EDT Attender: [facility] 04/27/2019 NEXTGEN ( int [facility] 10:29:00 [place] [facility] ical AM EDT - Center) 04/27/2019 10:29:00 AM EDT Attender: [facility] 04/27/2019 NEXTGEN ( int [facility] 09:20:00 [place] [facility] ical AM EDT - Center) 04/27/2019 09:20:00 AM EDT Attender: Dai [facility] 04/02/2019 NEXTGE N ([facility] 10:38:00 [place] [facility] AM EDT - Center) 04/02/2019 10:38:00 AM EDT Attender: [facility] 04/01/2019 NEXTGE N ([facility] 11:05:00 [place] [facility] AM EDT - Center) 04/01/2019 11:05:00 AM EDT Attender: [facility] 03/05/2019 NEXTGE N ([facility] 11:04:00 [place] [facility] AM EDT - Center) 03/05/2019 11:04:00 AM EDT Attender: [facility] 01/08/2019 NEXTGEN (Sa int [facility] 02:15:00 [place] [facility] PM EST - Center) 01/08/2019 02:15:00 PM EST Attender: [facility] 09/17/2018 NEXTGEN (Sa int [facility] 08:58:00 [place] [facility] AM EDT - Center) 09/17/2018 08:58:00 AM EDT Attender: [facility] 09/14/2018 NEXTGEN (Sa int [facility] 12:26:00 [place] [facility] PM EDT - Center) 09/14/2018 12:26:00 PM EDT 09/14/2018 [facility] 12:00:00 Medical Center AM EDT [facility] 08/28/2017 [facility] 02:53:00 [place] [facility] PM EDT - Center) 08/28/2017 02:53:00 PM EDT Attender: [facility] 07/04/2017 [facility] 12[facility] [place] [facility] PM [facility]T - [facility]) 07/04/2017 12:01:00 PM EDT Attender: [facility] 06/17/2017 NEXTGEN (Sa int MiChung Pollack [place] 03:04:00 [place] [facility] PM EDT - Center) 06/17/2017 03:04:00 PM EDT [facility] 10/08/2016 NEXTGEN ([facility] 08:45[facility] [place] [facility] AM EST - Center) 10/08/2016 08:45:00 AM EST Attender: Joel Pena 07/25/2016 NEXTGE N ([facility] 08:43:00 Indiobalbir PedrazaAttender: AM EDT - Center) Xipamela Johnson 07/25/2016 08:43:00 AM EDT Attender: Joel [facility]ena 04/10/2015 NEXTGE N ([facility] 02:38:00 [place] Med[facility] igyg PM EDT - Center) 04/10/2015 02:38:00 PM EDT Attender: Joel Pena 03/02/2015 NEXTGE N ([facility] 11:34:00 [place] [facility] iggy AM EDT - Center) 03/02/2015 11:34:00 AM EDT Attender: Joel [facility]ena 09/20/2014 [facility]EXTGE N ([facility] 03:16:[facility] [place] [facility]gy PM EDT - Center) 09/20/2014 03:16:00 PM EDT Medications Medication Brand Start Product Dose Route Administrative Pharm[facility] Indications Reaction Description Data Name Date Form Instructions Instructions Source(s) 120 ACTUAT Symbic 02/13/ 2.00 RESPIR active 120 AC TUAT NEXTGEN Budesonide ort 2020 {puff ATORY Budesonide ( [facility] 0.16 160 12:00: } (INHAL 0.16 [place] MG/ACTUAT / mcg-4. 00 AM ATION) MG/ACTUA T / Medical formoterol [address]) fumarate mcg/ac fumarate 0.0045 tuatio 0.0045 MG/ACTUAT n HFA MG/ACTUAT Metered aeroso Metered Dose Dose l Inhaler Inhaler inhale [Symbicort] [Symbicort] r Symbicort 160 mcg-4.5 mcg/actuati on HFA aerosol inhaler albuterol albute 02/13/ active inhale 2 NEXTGEN sulfate HFA rol 2020 puff by (Bridgette t 90 sulfat 12:00: inhalation Cesar hs mcg/actuati e 00 AM route every Medical on aerosol EDT 4 - 6 hours Ce nter) inhaler as needed as needed benzonatate benzon 12/02/ active take 1 NEXTGEN 100 MG Oral atate 2020 capsule by ( [facility] Capsule 100 mg 12:00: oral route 3 [place] benzonatate capsul 00 AM times ever y Medical 100 mg e EST day as Center) capsule needed for cough as needed Ciprofloxac ciprof ORAL active take 1 NEXTGEN in 500 MG loxaci 2017 {tbl} tablet by (S aint Oral Tablet n 500 12:00: oral route [place] ciprofloxac mg 00 AM every 12 Med ical in 500 mg tablet EDT hours Center) tablet Sulfamethox Bactri ORAL active Sulfame thoxa NEXTGEN azole 800 m DS 2017 {tbl} zole 800 MG (S aint MG / 800 12:00: / [place] Trimethopri mg-160 00 AM Trimethopr im Medical m 160 MG mg EDT 160 MG Oral Cent er) Oral Tablet tablet Tablet [Bactrim] [Bactrim] Bactrim DS 800 mg-160 mg tablet Fluconazole Difluc ORAL active Flucona zole NEXTGEN 150 MG Oral an 150 2017 {tbl} 150 MG Ora l (Saint Tablet mg 12:00: Tablet [place] [Diflucan] tablet 00 AM [Diflucan] Medical Diflucan EDT Center) 150 mg tablet Diazepam 5 Valium ORAL active Diazepam 5 NEXTGEN MG Oral 5 mg 2017 {tbl} MG Oral (Saint Tablet tablet 12:00: Tablet [place] [Valium] 00 AM [Valium] Medica l Valium 5 mg EDT Center) tablet Loratadine lorata ORAL active take 1 N EXTGEN 10 MG Oral dine 2016 {tbl} tablet by (Sa int Tablet 10 mg 12:00: oral route Jerry pierre loratadine tablet 00 AM every day M edical 10 mg EDT Center) tablet 120 ACTUAT Symbic RESPIR active 120 AC TUAT NEXTGEN Budesonide ort 2017 {puff ATORY Budesonide ( [facility] 0.16 160 12:00: } (INHAL 0.16 [place] MG/ACTUAT / mcg-4. 00 AM ATION) MG/ACTUA T / Medical formoterol [address]) fumarate mcg/ac fumarate 0.0045 tuatio 0.0045 MG/ACTUAT n HFA MG/ACTUAT Metered aeroso Metered Dose Dose l Inhaler Inhaler inhale [Symbicort] [Symbicort] r Symbicort 160 mcg-4.5 mcg/actuati on HFA aerosol inhaler 200 ACTUAT ProAir 06/17/ active [id number] 7 NEXTGEN Albuterol HFA 90 2017 200 ACTUAT (S aint 0.09 mcg/ac 12:00: Albuterol Chris s MG/ACTUAT tuatio 00 AM 0.09 Medical Metered n EDT MG/ACTUAT Center) Dose aeroso Metered Dose Inhaler l Inhaler [ProAir] inhale [ProAir] ProAir HFA r 90 mcg/actuati on aerosol inhaler Acetaminoph Tyleno 10/08/ 2.00 ORAL active take 2 NEXTGEN en 325 MG l 325 2016 {tbl} tablet by (Sa int Oral Tablet mg 12:00: oral route [place] Tylenol 325 tablet 00 AM every 6 Me dical mg tablet EST hours as Center ) needed Insurance Providers Payer name Policy type Policy ID Covered Covered constitution party's Policy P harrison / Coverage constitution party ID relationship to Orta Inf ormation type orta BLUE CROSS - O [id number] 01 [id number] [facility] EM[facility] - OP 40 UNITED O 01 HEALTHCARE [facility] EMPL OP Problems, Conditions, and Diagnoses Code Display Name Description Problem Type Effective Data Sour ce(s) Dates J45.909 Unspecified UNSPECIFIED Diagnosis 02/14/2020 [facility] asthma, ASTHMA, 09:20:00 AM Medical Cente r uncomplicated UNCOMPLICATED EDT J06.9 Acute upper ACUTE UPPER Diagnosis 12/02/2019 [facility] respiratory RESPIRATORY 02:28:[address] infection, INFECTION, EST unspecified UNSPECIFIED Surgeries/Procedures Procedure Description Date Indications Data Source(s) OFFICE/OUTPATIENT 02/14/2020 NEXTGEN (S aint [place] VISIT, EST 12:00:00 AM EDT - Medical Ce nter) 02/14/2020 12:00:00 AM EDT Results ID Date Data Source [id number] 03/06/2020 12:00:00 AM EDT [facility] Name Value Range Interpretation Code Description Data Judy rce(s) Supporting Document(s ) 2019-nCoV [facility] RNA XXX MARI+probe- Imp This lab was ordered by [facility] Myah TURNER and reported by [employer]. ID Date Data Source [id number] 09/14/2018 01:05:00 PM EDT [facility] 0 Name Value Range Interpretation Description Data Sup porting Code Source(s) Document(s ) UNK NEGATIVE <content [facility] styleCode="Otf Perezs d">Urine Medical Bilirubin Center </content>SMAL L <content styleCode="Gi lics"> (NEGATIVE )</content> Color of Urine YELLOW <content [facility] styleCode="[facility]tf [place] d">Color, Medical Urine Center </content>RED <content styleCode="Gi lics"> (YELLOW )</content> UNK CLEAR <content [facility] styleCode="Otf Perezs d">Urine Medical Clarity Center </content>Sl CLOUDY <content styleCode="Gi lics"> (CLEAR )</content> Ketones NEGATIVE <content [facility] [Mass/volume] styleCode="Otf Perezs in Urine by d">Urine Medical Test strip Ketone Center </content>TRAC E MG/DL<content styleCode="Gi lics"> (NEGATIVE MG/DL)</conten t> Glucose NEGATIVE <content [facility] [Mass/volume] styleCode="Otf Perezs in Urine by d">Urine Medical Test strip Glucose Center </content>250 MG/DL<content styleCode="Gi lics"> (NEGATIVE MG/DL)</conten t> pH of Urine by 4.5-8.0 <content [facility] Test strip styleCode="Otf Perezs d">Urine pH Medical </content>5.0 Center NM<content styleCode="Gi lics"> (4.5-8.0 NM)</content> Hemoglobin NEGATIVE <content Saint [Presence] in styleCode="Otf Perezs Urine by Test d">Urine Blood Medical strip </content>NEGA Center TIVE <content styleCode="Gi lics"> (NEGATIVE )</content> Protein NEGATIVE <content [facility] [Mass/volume] styleCode="Otf [place] in Urine by d">Urine Medical Test strip Protein Center </content>100 MG/DL<content styleCode="Gi lics"> (NEGATIVE MG/DL)</conten t> Nitrite NEGATIVE <content Saint [Presence] in styleCode="Otf Borjas Urine by Test d">Urine Medical strip Nitrite Center </content>POSI TIVE <content styleCode="Gi lics"> (NEGATIVE )</content> Specific 1.015-1.02 Below low normal <content [facility] gravity of 5 styleCode="Otf Borjas Urine by Test d">Urine Medical strip Specific Center [place] </content>1.01 0 NM L<content styleCode="Gi lics"> (1.015-1.025 NM)</content> Urobilinogen 0.2-1.0 Above high <content Saint [Units/volume] normal styleCode="Otf Borjas in Urine by d">Urine Medical Test strip Urobilinogen Center </content>>= 8.0 MG/DL H<content styleCode="Gi lics"> (0.2-1.0 MG/DL)</conten t> UNK 0-3 <content Saint styleCode="Otf [place] d">Urine White Medical Blood Cell Center </content>50 - 100 HPF<content styleCode="Gi lics"> (0-3 HPF)</content> UNK 0-3 <content Saint styleCode="Otf Perezs d">Urine Red Medical Blood Cell Center </content>10 - 20 HPF<content styleCode="Gi lics"> (0-3 HPF)</content> Leukocyte NEGATIVE <content Saint esterase styleCode="Otf Borjas [Presence] in d">Urine Medical Urine by Test Leukocyte Center strip </content>MODE RATE <content styleCode="Gi lics"> (NEGATIVE )</content> UNK <content Saint styleCode="Otf Perezs d">Epithelial Medical Cell Center </content>5 - 10 LPF (Reference Range: not available)<br/ > UNK NEGATIVE <content [facility] styleCode="Otf [place] d">Urine Medical Bacteria Center </content>MANY HPF<content styleCode="Gi lics"> (NEGATIVE HPF)</content> ID Date Data Source Microbiology.[id number] 09/14/2018 01:05:00 PM EDT [facility] 400 Name Value Range Interpretation Code Description Data Judy rce(s) Supporting Document(s ) UNK <item><content [facility] styleCode="Bold"> Medical Cent er Culture Report </content>
<t able><tbody><tr>< td>Specimen Number:</td><td>[id number]</td></tr ><tr><td>Sample Collection Date/Time: </td><td>09/14/20 18 1:05 PM</td></tr><tr>< td>Specimen Source:</td><td>U RINE BLADDER</td></tr> <tr><td>Urine Culture:</td><td> Collection Plate Date: 09/14/2018 17:29 </td></tr><tr><td >Culture Status:</td><td>F inal </td></tr><tr><td >Culture Report:</td><td>C ulture in progress </td></tr><tr><td >[place] Count Urine:</td><td>>1 00,000 CFU/ML </td></tr><tr><td >Preliminary 1:</td><td>GRAM NEGATIVE BACILLI </td></tr><tr><td >Organism 1:</td><td>ESCHER ICHIA COLI </td></tr></tbody ></table>
<ta ble border="2"><tbody ><tr><td></td><td >1</td></tr><tr>< td>Comment</td><t d></td></tr><tr>< td>Result Value</td><td>ESC HERICHIA COLI </td></tr><tr><td >Result Status</td><td>Fi nal Result</td></tr>< tr><td>AMPICILLIN </td><td>>16 R</td></tr><tr><t d>AMPICILLIN SULBACTAM</td><td >16/8 I</td></tr><tr><t d>AZTREONAM</td>< td><=8 S</td></tr><tr><t d>CEFOTETAN</td>< td><= 16 S</td></tr><tr><t d>CEFTAZIDIME</td ><td><=1 S</td></tr><tr><t d>CEFUROXIME</td> <td><=4 S</td></tr><tr><t d>CIPROFLOXACIN</ td><td><= 1 S</td></tr><tr><t d>ERTAPENEM</td>< td><=1 S</td></tr><tr><t d>GENTAMICIN</td> <td><= 4 S</td></tr><tr><t d>IMIPENEM</td><t d><= 1 S</td></tr><tr><t d>LEVOFLOXACIN</t d><td><= 2 S</td></tr><tr><t d>MEROPENEM</td>< td><= 1 S</td></tr><tr><t d>NITROFURANTOIN< /td><td><= 32 S</td></tr><tr><t d>PIPERACILLIN/TA ZOBACTAM</td><td> <= 16 S</td></tr><tr><t d>TETRACYCLINE</t d><td><= 4 S</td></tr><tr><t d>TIGECYCLINE</td ><td><= 2 S</td></tr><tr><t d>TRIMETHOPRIM/GUERRERO LFAMETHOXAZOLE</t d><td>>2/38 R</td></tr></tbod y></table></item> UNK <item><content [facility] styleCode="Bold"> Medical Cent er Culture Status </content>
<t able><tbody><tr>< td>Specimen Number:</td><td>[id number]</td></tr ><tr><td>Sample Collection Date/Time: </td><td>09/14/20 18 1:05 PM</td></tr><tr>< td>Specimen Source:</td><td>U RINE BLADDER</td></tr> <tr><td>[place] Count Urine:</td><td>>1 00,000 CFU/ML </td></tr><tr><td >Preliminary 1:</td><td>GRAM NEGATIVE BACILLI </td></tr><tr><td >Culture Status:</td><td>F inal </td></tr><tr><td >Culture Report:</td><td>C ulture in progress </td></tr><tr><td >Urine Culture:</td><td> Collection Plate Date: 09/14/2018 17:29 </td></tr><tr><td >Organism 1:</td><td>ESCHER ICHIA COLI </td></tr></tbody ></table>
<ta ble border="2"><tbody ><tr><td></td><td >1</td></tr><tr>< td>Comment</td><t d></td></tr><tr>< td>Result Value</td><td>ESC HERICHIA COLI </td></tr><tr><td >Result Status</td><td>Fi nal Result</td></tr>< tr><td>AMPICILLIN </td><td>>16 R</td></tr><tr><t d>AMPICILLIN SULBACTAM</td><td >16/8 I</td></tr><tr><t d>AZTREONAM</td>< td><=8 S</td></tr><tr><t d>CEFOTETAN</td>< td><= 16 S</td></tr><tr><t d>CEFTAZIDIME</td ><td><=1 S</td></tr><tr><t d>CEFUROXIME</td> <td><=4 S</td></tr><tr><t d>CIPROFLOXACIN</ td><td><= 1 S</td></tr><tr><t d>ERTAPENEM</td>< td><=1 S</td></tr><tr><t d>GENTAMICIN</td> <td><= 4 S</td></tr><tr><t d>IMIPENEM</td><t d><= 1 S</td></tr><tr><t d>LEVOFLOXACIN</t d><td><= 2 S</td></tr><tr><t d>MEROPENEM</td>< td><= 1 S</td></tr><tr><t d>NITROFURANTOIN< /td><td><= 32 S</td></tr><tr><t d>PIPERACILLIN/TA ZOBACTAM</td><td> <= 16 S</td></tr><tr><t d>TETRACYCLINE</t d><td><= 4 S</td></tr><tr><t d>TIGECYCLINE</td ><td><= 2 S</td></tr><tr><t d>TRIMETHOPRIM/GUERRERO LFAMETHOXAZOLE</t d><td>>2/38 R</td></tr></tbod y></table></item> Procedure Social History Code Duration Value Status Description Data Source(s ) Caffeine Use 02/14/2020 completed NEXTGEN (Froest nt Details 12:00:00 AM EDT [facility]) Smoking 02/14/2020 Unknown if completed Unknown if ever NEXTGEN ( [facility] 12:00:00 AM EDT ever smoked smoked [facility]) Alcohol Use completed [facility] ([facility]) Smoking Unknown if completed Unknown if ever [facility] ever smoked smoked Medical Cente r Vital Signs ID Date Data Source UNK Name Value Range Interpretation Code Description Data Source(s) Oxygen saturation 100 % 100 % NEXTGEN ([facility] in Arterial blood [facility] by Pulse oximetry Reading) Body mass index 24.09 kg/m2 24.09 kg/m2 NEXTGEN ([facility] (BMI) [Ratio] [facility]) Body temperature 36.50 Virgie 36.50 Virgie [facility] ([facility]) Heart rate 98 /min 98 /min [facility] ([facility]) Diastolic blood 76 mm[Hg] 76 mm[Hg] [facility] ( [facility]) Systolic blood 130 mm[Hg] 130 mm[Hg] [facility] ([facility]) Body weight 61.689 kg 61.689 kg [facility] ([facility]) Body height 160.02 cm 160.02 cm [facility] ([facility]) [facility]xygen saturation 100 % 100 % [facility] in Arterial blood [facility] by Pulse oximetry Center) Body mass index 24.45 kg/m2 24.45 kg/m2 NEXTGEN ([facility] (BMI) [Ratio] [facility]) Body temperature 36.56 Virgie 36.56 Virgie [facility] ([facility]) Heart rate 75 /min 75 /min [facility] ([facility]) Diastolic blood 68 mm[Hg] 68 mm[Hg] [facility] ( [facility]) Systolic blood 106 mm[Hg] 106 mm[Hg] [facility] ([facility]) Body weight 62.596 kg 62.596 kg [facility] ([facility]) Body height 160.02 cm 160.02 cm [facility] ([facility]) Patient Treatment Plan of Care Planned Activity Planned Date Details Description Data Source (s) 120 ACTUAT Budesonide 0.16 02/14/2020 N EXTGEN (Saint MG/ACTUAT / formoterol 12:00:00 AM EDT [facility] Medical fumarate 0.0045 MG/ACTUAT Ce nter) Metered Dose Inhaler [Symbicort] albuterol sulfate HFA 90 02/14/2020 NEX TGEN ([facility] benzonatate 100 MG Oral 12/02/2019 NEXT GEN ([facility] Capsule 12:00:[address] [facility]) Ciprofloxacin 500 MG Oral 09/17/2018 NE XTGEN (Saint Tablet 12:00:[address] [facility]) Fluconazole 150 MG Oral 09/14/2018 NEXT GEN (Saint Tablet [Diflucan] 12:00:00 AM [facility]) Sulfamethoxazole 800 MG / 09/14/2018 NE XTGEN (Saint Trimethoprim 160 MG Oral 12:00:00 AM [facility] Tablet [Bactrim] Reading) Diazepam 5 MG Oral Tablet 08/28/2017 NE XTGEN (Saint [Valium] 12:00:[address] [facility]) Loratadine 10 MG Oral 06/17/2017 NEXTGE N (Saint Tablet 12:00:[address] [facility]) 200 ACTUAT Albuterol 0.09 06/17/2017 NE XTGEN ([facility] MG/ACTUAT [facility]Air[facility] Center) 120 ACTUAT Budesonide 0.16 06/17/2017 N EXTGEN ([facility] MG/ACTUAT / formoterol 12:00:00 AM EDT [facility] Medical fumarate 0.0045 MG/ACTUAT Ce nter) Metered Dose Inhaler [Symbicort] Acetaminophen 325 MG Oral 10/08/2016 NE XTGEN (Saint Tablet 12:00:[address] [facility])
[2020-09-01] MEDS ORDERED: LACTATED RINGERS SOLUTION 1000 ML INFUS.BAG IV ONE (20:27)
--- NOTE | 2020-09-01 20:30 | PDOC ---
Attending Attestation - Resident Resident Name: Chris Boyer - ED Attending Attestation I have performed the following: I have examined & evaluated the patient, The case was reviewed & discussed with the resident, I agree w/resident's findings & plan - HPI HPI: 09/01/20 20:59 Pt had diarrhea last week and that was followed by vomiting after she had eaten a frozen TV dinner with chicken 6 days ago. Pt has continued epigastric pain and vomiting, regardless of what she eats. She has epigastric pain. - Physicial Exam PE: 09/01/20 21:01 Normal exam afebrile VSS heart and lungs normal abd soft NT ND +gassy bowel sounds. normal extremities normal neuro exam - Medical Decision Making 09/01/20 21:05 Pt will have labs and abd CT scan 09/01/20 21:07 Pt's CBC is normal 09/02/20 00:04 Patient Name: SHAILA MACHUCA THIS IS A PRELIMINARY REPORT FROM IMAGING RN PROCEDURE EXAM: CT Abdomen \T\ Pelvis w IMAGES: 485 EXAM DATE AND TIME: 2020-09-01 22:40:17 HISTORY: 60 year old woman: Vomiting and diarrhea. COMPARISON: None. TECHNIQUE: CT Abdomen \T\ Pelvis with I.V., but no oral, contrast: Post contrast axial images were obtained following the administration of i.v. iodinated contrast. 100 cc Omnipaque. Coronal and sagittal images were also generated. FINDINGS: The lung bases are clear without evidence of infiltrate, pleural effusion or pulmonary nodule. The heart size is normal. There are no coronary artery calcifications. The lower thoracic and abdominal aorta, and the iliac arteries, are normal in diameter and wall thickness, without evidence of aneurysm or dissection. Evaluation of the gastrointestinal tract is limited by the lack of oral contrast. The bowel gas pattern is unremarkable, without evidence of free air, ascites fluid, small or large bowel dilatation or obstruction. There is no evidence of diverticulosis or diverticulitis. The appendix is normal. Vertebral well-defined low density hepatic cysts are noted, the largest in the medial segment of the right hepatic lobe measuring 1.8 cm in diameter. The liver is otherwise normal size shape and contour. The portal vein, common bile duct, gallbladder, pancreatic tissues, spleen, adrenal glands, kidneys, the ureters, urinary bladder, appear unremarkable. There is an anteverted uterus with a 2 x 6 x 2 x 6 cm fibroid in the anterior fundal wall. No evidence of abdominal or pelvic adenopathy. Osseous structures exhibit grossly normal mineralization without evidence of lytic or sclerotic lesions. The thoracic and lumbar vertebral body heights and alignments are maintained. IMPRESSION: Anteverted uterus with a 2 x 6 x 2 x 6 cm fibroid in the anterior fundal wall. Benign appearing hepatic cysts. Ultrasound examination may help in further evaluating these findings, if clinically indicated. This CT scan of the abdomen and pelvis appears otherwise unremarkable. 09/02/20 23:29 Pt with gas pain; stable to go home Discharge - Discharge Information Problems reviewed: Yes Clinical Impression/Diagnosis: Gastroenteritis Condition: Improved - Follow up/Referral Referrals: Jerry Fernandez MD [Staff Physician] - ON STAFF,NOT [Primary Care Provider] - - Patient Discharge Instructions Patient Printed Discharge Instructions: DI for Viral Gastroenteritis -- Adult Additional Instructions: You were seen in the emergency department for Nausea and vomiting. You received pain medication, nausea medication an fluids . Your labs and imaging showed no severe gastrointestinal problems This can be caused by viral infection. As such you were treated for gastroent eritis. You were given pain and nausea medication in the emergency department. Please follow up with your primary care physician and or reinforcing rod layer regarding your visit to the emergency department. If you experience profound nausea, vomiting, blood in stool, lightheadedness please return to the emergency department. - Post Discharge Activity
[2020-09-01] MEDS ORDERED: morphine CARPU-JECT 2 MG/1 ML DISP.SYRIN IVPUSH ONE (20:36)
[2020-09-01 20:50] LABS: BASO % 0.4 % (0-2.0); EOS % 2.7 % (0-4.5); HEMATOCRIT 37.7 % (32.4-45.2); HEMOGLOBIN 12.8 GM/dL (10.7-15.3); MCH 30.9 pg (25.7-33.7); MCHC 33.9 g/dl (32.0-36.0); MEAN PLT VOLUME 11.9 fl (7.5-11.1); MONO % 9.1 % (3.8-10.2); NEUT % 48.8 % (42.8-82.8); PLATELET COUNT 149 K/MM3 (134-434); RBC 4.14 M/mm3 (3.60-5.2); RDW 12.9 % (11.6-15.6); WHITE BLOOD COUNT 8.2 K/mm3 (4.0-10.0)
[2020-09-01 21:31] LABS: ALBUMIN 3.6 g/dl (3.4-5.0); ALK PHOS 99 U/L (45-117); ANION GAP 6 MMOL/L (8-16); BLOOD UREA NITROGEN 9.6 mg/dL (7-18); CALCIUM 8.7 mg/dL (8.5-10.1); CHLORIDE 110 mmol/L (98-107); CO2 26 mmol/L (21-32); CREATININE 0.8 mg/dL (0.55-1.3); GLUCOSE,RANDOM 80 mg/dL (74-106); LIPASE 86 U/L (73-393); POTASSIUM 4.4 mmol/L (3.5-5.1); SGOT/AST 14 U/L (15-37); SGPT/ALT 17 U/L (13-61); SODIUM 142 mmol/L (136-145); TOT PROT 6.8 g/dl (6.4-8.2)
[2020-09-01 22:29] LABS: URINE APPEARANCE CLEAR; URINE BILIRUBIN NEGATIVE (NEGATIVE); URINE COLOR YELLOW; URINE GLUCOSE (UA) NEGATIVE (NEGATIVE); URINE KETONE 1+ (NEGATIVE); URINE LEUK ESTERASE NEGATIVE (NEGATIVE); URINE NITRITE NEGATIVE (NEGATIVE); URINE PROTEIN NEGATIVE (NEGATIVE)
[2020-09-01 23:06] VITALS: BP 126/80; PULSE 76
== END 2020-09-02 00:22 ==
LOC: JER 18:14 → SUPCPDRO 18:14 → JER 09-02 00:22
PROC: 3E033NZ Introduction of Analgesics, Hypnotics, Sedatives into Peripheral Vein, Percutaneous Approach (ICD-10-PCS; principal; 2020-09-01)
PROC: 3E033GC Introduction of Other Therapeutic Substance into Peripheral Vein, Percutaneous Approach (ICD-10-PCS; 2020-09-01)
DX: K52.9 Noninfective gastroenteritis and colitis, unspecified (principal)
CPT/HCPCS: 36415; 74177-TC; 80053; 81003; 83690; 84484; 85025; 87086; 99285-25; J0131; Q9967